=== PATIENT | female | born 1995 | race Caucasian/White ===

== ENCOUNTER → 2018-09-24 | Outpatient (CLI) | payer BC ==
[~2018-09-24] MED LIST: ALBU90I; IBUP400 PO; VITAMENS
== END ==
LOC: LAB 11:23 → LAB SHORT 11:23
PROVIDERS: Registered Nurse Community Health
DX: Z01.419 Encounter for gynecological examination (general) (routine) without abnormal findings (principal)
CPT/HCPCS: G0123

== ENCOUNTER → 2022-04-24 | Outpatient (CLI) | payer BC | LOC: LAB SHORT 10:34 → LAB 10:34 | PROVIDERS: Registered Nurse Community Health | DX: Z12.4 Encounter for screening for malignant neoplasm of cervix (principal) | CPT/HCPCS: G0123 ==

== ENCOUNTER 2023-02-06 11:13 | Emergency (ER) | payer BC ==
[~2023-02-06] VITALS: Ht 172.7 cm; Wt 69.0 kg
[2023-02-06 11:50] LABS: BASOPHILS ABSOLUTE AUTO 0.03 K/mm3 (0.00-0.23); BASOPHILS PERCENT AUTO 0 % (0-2); EOSINOPHILS ABSOLUTE AUTO 0.02 K/mm3 (0.00-0.68); EOSINOPHILS PERCENT AUTO 0 % (0-6); Hematocrit 43.4 % (33.0-51.0); Hemoglobin 14.6 g/dL (11.5-16.0); IMMATURE GRAN ABSOLUTE AUTO 0.01 K/mm3 (0.00-0.10); IMMATURE GRAN PERCENT AUTO 0 % (0-1); LYMPHOCYTES ABSOLUTE AUTO 1.78 K/mm3 (0.84-5.20); LYMPHOCYTES PERCENT AUTO 26 % (21-46); MONOCYTES ABSOLUTE AUTO 0.39 K/mm3 (0.16-1.47); MONOCYTES PERCENT AUTO 6 % (4-13); Mean Corpuscular HGB 28.7 pg (26.0-34.0); Mean Corpuscular HGB Conc 33.6 g/dL (31.5-36.5); Mean Corpuscular Volume 85 fL (80-100); Mean Platelet Volume 8.8 fL (9.1-12.4); NEUTROPHILS ABSOLUTE AUTO 4.71 K/mm3 (1.96-9.15); NEUTROPHILS PERCENT AUTO 68 % (41-73); Platelet Count 359 K/mm3 (150-400); RDW Coefficient Variation 11.9 % (11.7-14.2); RDW Standard Deviation 37.6 fL (35.1-46.3); Red Blood Cell Count 5.08 M/mm3 (3.80-5.20); White Blood Cell Count 6.94 K/mm3 (4.00-11.30)
[2023-02-06] MEDS ORDERED: [UNRECOGNIZED DRUG - OTHER] (12:01)
[2023-02-06 12:21] LABS: Potassium, Blood 4.2 mmol/L (3.5-5.5)
[2023-02-06 12:22] LABS: Bun/Creatinine Ratio 11.5 (12.0-20.0); Calcium, Blood 8.7 mg/dL (8.5-10.1); Creatinine, Blood 0.78 mg/dL (0.40-1.00)
[2023-02-06 12:23] LABS: Albumin/Globulin Ratio 1.1 (0.8-1.8); Bilirubin, Total 0.5 mg/dL (0.1-1.0); Globulin, Blood 3.6 g/dL (2.2-4.0); Total Protein, Blood 7.6 g/dL (6.4-8.2)
[2023-02-06 12:30] LABS: Source, Urine Clean Catch
[2023-02-06 12:38] LABS: Magnesium, Blood 2.1 mg/dL (1.6-2.4)
[2023-02-06 12:40] LABS: Appearance, Urine Clear (Clear); Bilirubin, Urine Neg (Neg); Blood, Urine Neg (Neg); Glucose Qualitative, Urine Neg (Neg); Ketones, Urine Neg (Neg); Leukocyte Esterase, Urine 1+ (Neg); Nitrite, Urine Neg (Neg); Protein, Urine Neg (Neg); Specific Gravity, Urine 1.005 (1.003-1.022); Urobilinogen, Urine NORM (Normal)
[2023-02-06 12:43] VITALS: BP 115/86
[2023-02-06 12:50] LABS: Color, Urine Pale Yellow (P-Yellow)
[2023-02-06 12:51] LABS: Bacteria Rare /hpf; Red Blood Cells, Urine Not Seen /hpf (0-2); Squamous Epithelial Cells Rare /hpf (Few)
== END 2023-02-06 14:24 | disposition home or self-care (01) ==
LOC: ER 11:13
PROVIDERS: Emergency Medicine
DX: R11.2 Nausea with vomiting, unspecified (principal); R19.7 Diarrhea, unspecified; R51.9 Headache, unspecified; M13.0 Polyarthritis, unspecified; J45.909 Unspecified asthma, uncomplicated
CPT/HCPCS: 80053; 81001; 81025; 83735; 85025; 87086; 96361; 96374; 96375; 99284-25; J1885; J2405; J7030

== ENCOUNTER → 2023-02-12 | Outpatient (CLI) | payer BC ==
[~2023-02-12] MED LIST changes: +[UNRECOGNIZED DRUG - OTHER]
== END ==
LOC: LAB 06:25 → LAB SHORT 06:25
DX: K52.9 Noninfective gastroenteritis and colitis, unspecified (principal); R10.9 Unspecified abdominal pain; Z13.89 Encounter for screening for other disorder
CPT/HCPCS: 83993; 87329

== ENCOUNTER → 2024-03-13 | Outpatient (CLI) | payer BC ==
[2024-03-13 17:51] LABS: Source, Urine Clean Catch
[2024-03-13 19:20] LABS: BASOPHILS ABSOLUTE AUTO 0.05 K/mm3 (0.00-0.23); BASOPHILS PERCENT AUTO 0 % (0-2); EOSINOPHILS ABSOLUTE AUTO 0.07 K/mm3 (0.00-0.68); EOSINOPHILS PERCENT AUTO 1 % (0-6); Hematocrit 39.1 % (33.0-51.0); Hemoglobin 13.8 g/dL (11.5-16.0); IMMATURE GRAN ABSOLUTE AUTO 0.08 K/mm3 (0.00-0.10); IMMATURE GRAN PERCENT AUTO 1 % (0-1); LYMPHOCYTES ABSOLUTE AUTO 2.32 K/mm3 (0.84-5.20); LYMPHOCYTES PERCENT AUTO 16 % (21-46); MONOCYTES ABSOLUTE AUTO 0.97 K/mm3 (0.16-1.47); MONOCYTES PERCENT AUTO 7 % (4-13); Mean Corpuscular HGB 29.5 pg (26.0-34.0); Mean Corpuscular HGB Conc 35.3 g/dL (31.5-36.5); Mean Corpuscular Volume 84 fL (80-100); Mean Platelet Volume 9.1 fL (9.1-12.4); NEUTROPHILS PERCENT AUTO 76 % (41-73); Platelet Count 348 K/mm3 (150-400); RDW Coefficient Variation 12.5 % (11.7-14.2); RDW Standard Deviation 37.6 fL (35.1-46.3); Red Blood Cell Count 4.68 M/mm3 (3.80-5.20); White Blood Cell Count 14.49 K/mm3 (4.00-11.30)
[2024-03-13 20:02] LABS: Appearance, Urine Clear (Clear); Bilirubin, Urine Neg (Neg); Blood, Urine Neg (Neg); Glucose Qualitative, Urine Neg (Neg); Ketones, Urine Neg (Neg); Leukocyte Esterase, Urine Neg (Neg); Nitrite, Urine Neg (Neg); Protein, Urine Neg (Neg); Urobilinogen, Urine NORM (Normal)
[2024-03-13 20:03] LABS: Color, Urine Pale Yellow (P-Yellow)
[2024-03-16 13:43] LABS: HIV 1,2 COMBO ANTIGEN/ANTIBODY Negative (Negative)
[2024-03-16 14:53] LABS: HEPATITIS C AB CIA INTERP Negative (Negative); HEPATITIS C ANTIBODY CIA INDEX 0.14 IV
[2024-03-17 09:06] LABS: HEPATITIS B SURFACE ANTIGEN Negative (Negative)
== END ==
LOC: LAB SHORT 17:47 → LAB 17:47
PROVIDERS: Registered Nurse Community Health
DX: Z34.91 Encounter for supervision of normal pregnancy, unspecified, first trimester (principal)
CPT/HCPCS: 81003; 84443; 86803; 87086; 87340; 87389

== ENCOUNTER → 2024-07-27 | Outpatient (CLI) | payer BC ==
[2024-07-27 19:30] LABS: Hematocrit 32.7 % (33.0-51.0); Hemoglobin 11.1 g/dL (11.5-16.0)
== END ==
LOC: LAB SHORT 18:55 → LAB 18:55
PROVIDERS: Registered Nurse Community Health
DX: Z34.93 Encounter for supervision of normal pregnancy, unspecified, third trimester (principal)
CPT/HCPCS: 82950; 85014; 85018

== ENCOUNTER → 2024-09-21 | Outpatient (CLI) | payer BC | LOC: LAB SHORT 17:59 → LAB 17:59 | PROVIDERS: Registered Nurse Community Health | DX: O13.3 Gestational [pregnancy-induced] hypertension without significant proteinuria, third trimester (principal) | CPT/HCPCS: 83520; 87081; 87150 ==